=== PATIENT | male | born 1985 | race African-American/Black ===

== ENCOUNTER 2017-04-07 09:01 | Emergency (ER) | payer OTHER ==
[~2017-04-07] VITALS: Ht 177.8 cm; Wt 123.7 kg
[~2017-04-07 09:01] MED LIST: AMOXICILLIN 50500 MG PO; BACTRIM DS 8001 TAB PO; CEPHALEXIN500 M1 PO; GENTAMICIN3 MG/ML OP; IBUPROFEN800 MG PO; NO HOME MEDICATIONS; NORCO 325 MG-51 TAB PO; SEPTRA DS 8001 TAB PO; TYLENOL 325MG325 MG PO
[2017-04-07 09:17] VITALS: TEMP 98.3
[2017-04-07] MEDS ORDERED: NORCO 325 MG-7.1 TAB PO (09:23)
[2017-04-07] MEDS ORDERED: NAPROSYN500 MG PO (09:24)
[2017-04-07 10:51] LABS: BASO # 0.1 (0.0-0.2); BASO % 0.4 % (0.0-2.0); EOS % 0.2 % (0-4.0); GRAN # 10.3 (1.4-6.5); GRAN % 73.1 % (42.2-75.2); HEMATOCRIT 41.8 % (42.0-52.0); HEMOGLOBIN 14.5 g/dl (13.5-18.0); LYMPH # 2.3 (1.2-3.4); LYMPH % 16.5 % (20.0-51.0); MEAN CELL VOLUME 87 fl (80.0-100.0); MEAN CORPUSCULAR HEMOGLOBIN 30 pg (27.0-31.0); MEAN CORPUSCULAR HGB CONC 35 g/dl (33.0-37.0); MEAN PLATELET VOLUME 9.5 fl (7.4-10.4); MONO # 1.3 (0.1-0.6); MONO % 9.4 % (1.7-9.3); PLATELET COUNT 288 K/mm3 (130-400); RED BLOOD COUNT 4.79 M/mm3 (4.20-5.60); REDCELL DISTRIBUTION WIDTH-CV 13.6 % (11.5-14.5); WHITE BLOOD COUNT 14.2 K/mm3 (4.8-10.8)
[2017-04-07 11:07] LABS: ADJUSTED CALCIUM 8.5 mg/dL (8.4-10.2); ALANINE AMINOTRANSFERASE 33 U/L (21-72); ALBUMIN 3.8 gm/dL (3.5-5.0); ALKALINE PHOSPHATASE 53 U/L (50-136); ANION GAP 8 mmol/L (7-16); BILIRUBIN,TOTAL 1.7 mg/dL (0.0-1.0); BLOOD UREA NITROGEN 14 mg/dL (9-20); CALCIUM 8.3 mg/dL (8.4-10.2); CARBON DIOXIDE 25 mmol/L (22-30); CHLORIDE 110 mmol/L (98-107); CREATININE, serum 0.73 mg/dL (0.66-1.25); GLUCOSE 91 mg/dL (74-106); LIPASE 37 U/L (23-300); POTASSIUM 3.4 mmol/L (3.4-5.0); SODIUM 142 mmol/L (137-145); TOTAL PROTEIN 6.6 gm/dL (6.4-8.2)
[2017-04-07 11:10] LABS: C-REACTIVE PROTEIN < 0.5 mg/dL (0.0-0.9)
[2017-04-07] MEDS ORDERED: POLYMYXIN B/TRIMETH OU (11:50)
[2017-04-07 11:54] LABS: PH 6 (5-8); SQUAMOUS EPITHELIAL None Seen /hpf; URINE APPEARANCE Clear; URINE BACTERIA None Seen /hpf; URINE BILIRUBIN Negative (NEGATIVE); URINE BLOOD Negative (NEGATIVE); URINE COLOR Yellow; URINE GLUCOSE Negative (NEGATIVE); URINE KETONE Negative (NEGATIVE); URINE RBC 0-2 /hpf; URINE UROBILINOGEN >=4.0 mg/dL (NEGATIVE); URINE WBC 0-2 /hpf
[2017-04-07 12:48] VITALS: BP 127/90; PULSE 73
== END 2017-04-07 12:48 | disposition home or self-care (01) ==
LOC: COL.ER 09:01
PROVIDERS: Physician Assistant
DX: H10.9 Unspecified conjunctivitis (principal); R11.2 Nausea with vomiting, unspecified; F17.210 Nicotine dependence, cigarettes, uncomplicated; Z87.01 Personal history of pneumonia (recurrent); Z98.890 Other specified postprocedural states
CPT/HCPCS: J2405; J2550; J7030

== ENCOUNTER → 2018-04-21 | Outpatient (CLI) | payer OTHER ==
[~2018-04-21] MED LIST changes: +NAPROSYN500 MG PO; +NORCO 325 MG-7.1 TAB PO; +POLYMYXIN B/TRIMETH OU
== END ==
LOC: COL.RAD 09:45
DX: M51.17 Intervertebral disc disorders with radiculopathy, lumbosacral region (principal); M51.15 Intervertebral disc disorders with radiculopathy, thoracolumbar region

== ENCOUNTER → 2018-05-01 | Outpatient (CLI) | payer OTHER | LOC: COL.RAD 11:08 | DX: M16.11 Unilateral primary osteoarthritis, right hip (principal); M21.951 Unspecified acquired deformity of right thigh; M54.41 Lumbago with sciatica, right side ==

== ENCOUNTER 2018-06-12 11:48 | Emergency (ER) | payer OTHER ==
[~2018-06-12] VITALS: Ht 177.8 cm; Wt 128.6 kg
[2018-06-12 12:02] VITALS: TEMP 98
[2018-06-12 12:52] LABS: BASO # 0.1 (0.0-0.2); BASO % 0.5 % (0.0-2.0); GRAN # 13.1 (1.4-6.5); GRAN % 86.1 % (42.2-75.2); HEMATOCRIT 44.3 % (42.0-52.0); HEMOGLOBIN 15.4 g/dl (13.5-18.0); LYMPH # 1.3 (1.2-3.4); LYMPH % 8.2 % (20.0-51.0); MEAN CELL VOLUME 87 fl (80.0-100.0); MEAN CORPUSCULAR HEMOGLOBIN 30 pg (27.0-31.0); MEAN CORPUSCULAR HGB CONC 35 g/dl (33.0-37.0); MEAN PLATELET VOLUME 9.6 fl (7.4-10.4); MONO # 0.8 (0.1-0.6); MONO % 4.9 % (1.7-9.3); PLATELET COUNT 353 K/mm3 (130-400); RED BLOOD COUNT 5.09 M/mm3 (4.20-5.60); REDCELL DISTRIBUTION WIDTH-CV 13.8 % (11.5-14.5)
[2018-06-12 12:59] LABS: ALANINE AMINOTRANSFERASE 51 U/L (21-72); ALBUMIN 4.3 gm/dL (3.5-5.0); ALKALINE PHOSPHATASE 57 U/L (50-136); ANION GAP 5 mmol/L (7-16); AST,SGOT 26 U/L (15-37); BILIRUBIN,TOTAL 1.4 mg/dL (0.0-1.0); BLOOD UREA NITROGEN 16 mg/dL (9-20); CALCIUM 9.4 mg/dL (8.4-10.2); CARBON DIOXIDE 28 mmol/L (22-30); CHLORIDE 107 mmol/L (98-107); CREATININE, serum 0.76 mg/dL (0.66-1.25); GLUCOSE 124 mg/dL (74-106); LIPASE 43 U/L (23-300); POTASSIUM 3.9 mmol/L (3.4-5.0); SODIUM 141 mmol/L (137-145); TOTAL PROTEIN 7.4 gm/dL (6.4-8.2)
[2018-06-12 13:21] LABS: TROPONIN-I < 0.012 ng/mL (0.000-0.034)
[2018-06-12] MEDS ORDERED: ZOFRAN ODT4 MG PO (14:14)
[2018-06-12 14:21] LABS: COLLECTION METHOD CLEAN CATCH
[2018-06-12 14:34] LABS: AMORPHOUS CRYSTAL Present /uL; MUCOUS Present /lpf; PH 8 (5-8); SQUAMOUS EPITHELIAL 0-2 /hpf; URINE APPEARANCE Hazy; URINE BACTERIA None Seen /hpf; URINE BILIRUBIN Negative (NEGATIVE); URINE BLOOD Negative (NEGATIVE); URINE COLOR Yellow; URINE GLUCOSE Negative (NEGATIVE); URINE KETONE Negative (NEGATIVE); URINE LEUKOCYTE ESTERASE Negative (NEGATIVE); URINE NITRATE Negative (NEGATIVE); URINE PROTEIN(semi-quant) 1+ (NEGATIVE); URINE RBC 0-2 /hpf; URINE UROBILINOGEN Negative (NEGATIVE)
[2018-06-12] MEDS ORDERED: PHENERGAN 25 TA25 MG PO (16:22)
[2018-06-12 16:38] VITALS: BP 168/92; PULSE 78
== END 2018-06-12 16:38 | disposition home or self-care (01) ==
LOC: COL.ER 11:48
PROVIDERS: Emergency Medicine
DX: K29.70 Gastritis, unspecified, without bleeding (principal); R11.10 Vomiting, unspecified; F17.210 Nicotine dependence, cigarettes, uncomplicated
CPT/HCPCS: C9113; J2405; J2550; J7030; Q9967

== ENCOUNTER 2018-10-10 01:52 | Emergency (ER) | payer OTHER ==
[~2018-10-10] VITALS: Ht 177.8 cm; Wt 124.5 kg
[~2018-10-10 01:52] MED LIST changes: +PHENERGAN 25 TA25 MG PO; +ZOFRAN ODT4 MG PO
[2018-10-10 02:03] VITALS: TEMP 97.6
[2018-10-10 03:08] LABS: BASO # 0.1 (0.0-0.2); BASO % 0.4 % (0.0-2.0); GRAN # 15.3 (1.4-6.5); HEMATOCRIT 46.1 % (42.0-52.0); LYMPH # 1.8 (1.2-3.4); LYMPH % 10.2 % (20.0-51.0); MEAN CELL VOLUME 87 fl (80.0-100.0); MEAN CORPUSCULAR HEMOGLOBIN 30 pg (27.0-31.0); MEAN CORPUSCULAR HGB CONC 35 g/dl (33.0-37.0); MEAN PLATELET VOLUME 9.9 fl (7.4-10.4); MONO # 0.7 (0.1-0.6); PLATELET COUNT 374 K/mm3 (130-400); RED BLOOD COUNT 5.29 M/mm3 (4.20-5.60); REDCELL DISTRIBUTION WIDTH-CV 13.1 % (11.5-14.5)
[2018-10-10 03:20] LABS: ALANINE AMINOTRANSFERASE 42 U/L (21-72); ALBUMIN 4.5 gm/dL (3.5-5.0); ALKALINE PHOSPHATASE 67 U/L (50-136); ANION GAP 11 mmol/L (7-16); AST,SGOT 30 U/L (15-37); BLOOD UREA NITROGEN 21 mg/dL (9-20); CARBON DIOXIDE 23 mmol/L (22-30); CHLORIDE 108 mmol/L (98-107); CREATININE, serum 0.75 mg/dL (0.66-1.25); GLUCOSE 146 mg/dL (74-106); LIPASE 28 U/L (23-300); POTASSIUM 4.1 mmol/L (3.4-5.0); SODIUM 142 mmol/L (137-145); TOTAL PROTEIN 8.1 gm/dL (6.4-8.2)
[2018-10-10 03:21] LABS: C-REACTIVE PROTEIN < 0.5 mg/dL (0.0-0.9)
[2018-10-10 05:16] LABS: COLLECTION METHOD CLEAN CATCH
[2018-10-10 05:23] LABS: MUCOUS Present /lpf; PH 7 (5-8); SQUAMOUS EPITHELIAL None Seen /hpf; URINE APPEARANCE Clear; URINE BACTERIA None Seen /hpf; URINE BILIRUBIN Negative (NEGATIVE); URINE BLOOD Negative (NEGATIVE); URINE COLOR Yellow; URINE GLUCOSE Negative (NEGATIVE); URINE KETONE 1+ (NEGATIVE); URINE LEUKOCYTE ESTERASE Negative (NEGATIVE); URINE NITRATE Negative (NEGATIVE); URINE PROTEIN(semi-quant) Negative (NEGATIVE); URINE RBC 0-2 /hpf; URINE UROBILINOGEN Negative (NEGATIVE)
[2018-10-10] MEDS ORDERED: ZOFRAN ODT4 MG PO ×2 (05:58)
[2018-10-10 06:15] VITALS: BP 135/81; PULSE 74
[2018-10-11 15:18] LABS: STOOL FOR OCCULT BLOOD NEGATIVE (NEGATIVE)
== END 2018-10-10 06:44 | disposition home or self-care (01) ==
LOC: COL.ER 01:52
PROVIDERS: Emergency Medicine
DX: R11.10 Vomiting, unspecified (principal); R19.7 Diarrhea, unspecified
CPT/HCPCS: J2405; J2550; J7030; Q9967

== ENCOUNTER 2019-01-01 20:44 | Emergency (ER) | payer SELFPAY ==
[~2019-01-01] VITALS: Ht 177.8 cm; Wt 127.7 kg
[2019-01-01 20:54] VITALS: BP 145/89; TEMP 98.5
[2019-01-01] MEDS ORDERED: CYMBALTA 20MG20 MG PO (21:26)
[2019-01-01 22:17] LABS: HEMOGLOBIN 15.3 g/dl (13.5-18.0); MEAN CELL VOLUME 87 fl (80.0-100.0); MEAN CORPUSCULAR HEMOGLOBIN 30 pg (27.0-31.0); MEAN CORPUSCULAR HGB CONC 35 g/dl (33.0-37.0); MEAN PLATELET VOLUME 9.7 fl (7.4-10.4); PLATELET COUNT 353 K/mm3 (130-400); RED BLOOD COUNT 5.07 M/mm3 (4.20-5.60); REDCELL DISTRIBUTION WIDTH-CV 13.3 % (11.5-14.5)
[2019-01-01 22:28] LABS: ALANINE AMINOTRANSFERASE 35 U/L (21-72); ALBUMIN 4.3 gm/dL (3.5-5.0); ALKALINE PHOSPHATASE 61 U/L (50-136); ANION GAP 13 mmol/L (7-16); AST,SGOT 27 U/L (15-37); BILIRUBIN,TOTAL 2.1 mg/dL (0.0-1.0); BLOOD UREA NITROGEN 24 mg/dL (9-20); CALCIUM 9.5 mg/dL (8.4-10.2); CARBON DIOXIDE 27 mmol/L (22-30); CHLORIDE 101 mmol/L (98-107); CREATININE, serum 0.82 (0.66-1.25); GLUCOSE 102 mg/dL (74-106); LIPASE 45 U/L (23-300); SODIUM 141 mmol/L (137-145); TOTAL PROTEIN 7.7 gm/dL (6.4-8.2)
[2019-01-01 22:31] LABS: BAND 1 % (0-10); LYMPHOCYTE 18 % (20.0-51.0); NEUTROPHILS 77 % (42.0-75.2)
[2019-01-01 22:33] LABS: PLATELET ESTIMATE NORMAL (NORMAL)
[2019-01-01 22:36] LABS: C-REACTIVE PROTEIN < 0.5 mg/dL (0.0-0.9)
[2019-01-01] MEDS ORDERED: ZOFRAN 4MG T4 MG/TAB PO (22:51)
[2019-01-01] MEDS ORDERED: PROTONIX 40MG T40 MG PO (22:51)
[2019-01-01] MEDS ORDERED: K-DUR20 MEQ PO (22:51)
[2019-01-02 00:56] VITALS: PULSE 90
== END 2019-01-02 00:51 | disposition home or self-care (01) ==
LOC: COL.ER 20:44
PROVIDERS: Emergency Medicine
DX: R19.7 Diarrhea, unspecified (principal); R11.2 Nausea with vomiting, unspecified; E87.6 Hypokalemia; F17.210 Nicotine dependence, cigarettes, uncomplicated
CPT/HCPCS: J2405; J2550; J7030

== ENCOUNTER 2021-03-11 12:07 | Emergency (ER) | payer SELFPAY ==
[~2021-03-11] VITALS: Ht 177.8 cm; Wt 125.0 kg
[~2021-03-11 12:07] MED LIST changes: +CYMBALTA 20MG20 MG PO; +K-DUR20 MEQ PO; +PROTONIX 40MG T40 MG PO; +ZOFRAN 4MG T4 MG/TAB PO
[2021-03-11 12:42] VITALS: TEMP 97.6
[2021-03-11] MEDS ORDERED: BACTRIM DS 8001 TAB PO (13:26)
[2021-03-11 13:34] VITALS: BP 158/116; PULSE 82
== END 2021-03-11 13:35 | disposition home or self-care (01) ==
LOC: COL.ER 12:07
DX: L02.213 Cutaneous abscess of chest wall (principal); E66.9 Obesity, unspecified; F17.210 Nicotine dependence, cigarettes, uncomplicated; Z68.39 Body mass index [BMI] 39.0-39.9, adult

== ENCOUNTER 2024-05-08 13:13 | Emergency (ER) | payer SELFPAY ==
[~2024-05-08] VITALS: Ht 175.3 cm; Wt 129.5 kg
[2024-05-08 13:26] VITALS: TEMP 98.5
[2024-05-08 16:54] LABS: COLLECTION METHOD CLEAN CATCH
[2024-05-08 17:02] LABS: HEMATOCRIT 42.5 % (42.0-52.0); HEMOGLOBIN 14.5 g/dl (13.5-18.0); MEAN CELL VOLUME 91 fl (80.0-100.0); MEAN CORPUSCULAR HEMOGLOBIN 31 pg (27-31); MEAN CORPUSCULAR HGB CONC 34 g/dl (33.0-37.0); MEAN PLATELET VOLUME 9.4 fl (7.4-10.4); PLATELET COUNT 449 K/mm3 (130-400); RED BLOOD COUNT 4.65 M/mm3 (4.20-5.60); REDCELL DISTRIBUTION WIDTH-CV 14.2 % (11.5-14.5)
[2024-05-08 17:08] LABS: URINE APPEARANCE CLEAR (CLEAR/HAZY); URINE BLOOD NEGATIVE (NEGATIVE); URINE COLOR YELLOW (YELLOW); URINE GLUCOSE NEGATIVE (NEGATIVE); URINE KETONE NEGATIVE (NEGATIVE); URINE NITRATE NEGATIVE (NEGATIVE); URINE PROTEIN(semi-quant) NEGATIVE (NEGATIVE)
[2024-05-08 17:31] LABS: BILIRUBIN,TOTAL 1.1 mg/dL (0.2-1.2); CALCIUM 9.8 mg/dL (8.4-10.2); CREATININE, serum 0.95 mg/dL (0.72-1.25); POTASSIUM 3.3 mEq/L (3.5-4.5); TOTAL PROTEIN 7.6 g/dl (6.2-8.1)
[2024-05-08 18:15] LABS: URINE WBC 20-50 /hpf (0-2)
[2024-05-08 18:16] LABS: MUCOUS PRESENT (NOT PRESENT); SQUAMOUS EPITHELIAL 0-2 /hpf (0-10); URINE BACTERIA RARE /hpf (NONE SEEN)
[2024-05-08 18:20] LABS: BASOPHIL 1 % (0-2); EOSINOPHIL 1 % (0-4); LYMPHOCYTE 15 % (20.0-51.0); NEUTROPHILS 78 % (42.0-75.2); PLATELET ESTIMATE INCREASED (NORMAL)
[2024-05-08] MEDS ORDERED: Iohexol 300 - 100 ML VIAL IV ONE (18:42)
[2024-05-08] MEDS ORDERED: NS 100 ML IV ONE (18:42)
[2024-05-08 18:57] LABS: THYROID STIMULATING HORMONE 0.329 uIU/mL (0.350-4.940)
[2024-05-08] MEDS ORDERED: CLEOCIN HCL300 MG PO (19:29)
[2024-05-08 20:31] VITALS: BP 112/73; PULSE 85
== END 2024-05-08 20:31 | disposition home or self-care (01) ==
LOC: COL.ER 13:13
PROVIDERS: Family Medicine
DX: K11.20 Sialoadenitis, unspecified (principal)
CPT/HCPCS: J0737; Q9967

== ENCOUNTER 2024-05-13 13:37 | Emergency (ER) | payer MEDICARE ==
[~2024-05-13] VITALS: Ht 175.3 cm; Wt 131.8 kg
[~2024-05-13 13:37] MED LIST changes: +CLEOCIN HCL300 MG PO
[2024-05-13 15:15] LABS: BASO # 0.1 K/mm3 (0.0-0.2); BASO % 0.8 % (0.0-2.0); EOS # 0.1 K/mm3 (0.0-0.7); EOS % 0.3 % (0.0-4.0); GRAN # 10.9 K/mm3 (1.4-6.5); GRAN % 75.8 % (42.2-75.2); HEMATOCRIT 39.8 % (42.0-52.0); HEMOGLOBIN 13.8 g/dl (13.5-18.0); LYMPH # 2.3 K/mm3 (1.2-3.4); LYMPH % 16.1 % (20.0-51.0); MEAN CELL VOLUME 89 fl (80.0-100.0); MEAN CORPUSCULAR HEMOGLOBIN 31 pg (27-31); MEAN CORPUSCULAR HGB CONC 35 g/dl (33.0-37.0); MEAN PLATELET VOLUME 9.5 fl (7.4-10.4); MONO % 6.7 % (1.7-9.3); PLATELET COUNT 486 K/mm3 (130-400); RED BLOOD COUNT 4.45 M/mm3 (4.20-5.60); REDCELL DISTRIBUTION WIDTH-CV 13.6 % (11.5-14.5)
[2024-05-13] MEDS ORDERED: Ondansetron 4 MG/2 ML VIAL IV ONE (15:15)
[2024-05-13] MEDS ORDERED: NS 1,000 ML IV ONE ×2 (15:15)
[2024-05-13 15:27] LABS: ALBUMIN 4.1 g/dL (3.5-5.0); BILIRUBIN,TOTAL 0.5 mg/dL (0.2-1.2); CALCIUM 9.9 mg/dL (8.4-10.2); CREATININE, serum 1.2 mg/dL (0.72-1.25); POTASSIUM 3.3 mEq/L (3.5-4.5); TOTAL PROTEIN 7.5 g/dl (6.2-8.1)
[2024-05-13] MEDS ORDERED: droPERidol 2.5 MG/ML 2 ML VIAL IV ONE (16:00)
[2024-05-13] MEDS ORDERED: ZOFRAN ODT4 MG PO (16:49)
[2024-05-13 17:09] VITALS: BP 133/88; PULSE 101; TEMP 97.5
== END 2024-05-13 17:10 | disposition home or self-care (01) ==
LOC: COL.ER 13:37
PROVIDERS: Personal Emergency Response Attendant
DX: K11.20 Sialoadenitis, unspecified (principal); E86.0 Dehydration
CPT/HCPCS: J1790; J2405; J7030